=== PATIENT | female | born 1990 | race Caucasian/White ===

== ENCOUNTER → 2018-05-23 08:41 | Outpatient (CLI) | payer MEDICAID | END | disposition home or self-care (01) | LOC: D.MRI 08:41 | DX: M79.671 Pain in right foot (principal) ==

== ENCOUNTER 2018-07-10 05:00 | Day surgery (SDC) | payer MEDICAID ==
[2018-07-09 11:00] LABS: HEMATOCRIT 42.2 % (36.0-48.0); HEMOGLOBIN 14.5 g/dL (12-16); MCH 32.1 pg (26.0-34.0); MCHC 34.4 g/dL (31.0-37.0); MCV 93.4 fL (80.0-100.0); MEAN PLATELET VOLUME 9.5 fL (7.4-10.4); RBC 4.52 10x6/uL (4.00-5.40); RDW 12.7 % (11.5-14.5)
[~2018-07-10] VITALS: Ht 177.8 cm; Wt 74.8 kg
--- NOTE | ~2018-07-10 | OP ---
PATIENT NAME: KVNG BROWNE MEDICAL RECORD: [id number] :89 LOCATION:D.OPS ADMISSION DATE: SURGEON: ONOFRE QUIÑONEZ DPM DATE OF OPERATION: 07/10/2018 PREOPERATIVE DIAGNOSIS: Ganglion cyst, right dorsal foot. POSTOPERATIVE DIAGNOSES: Ganglion cyst, right dorsal foot with spur underneath the ganglion cyst. PROCEDURES: 1. Ganglion cyst removal, right dorsal foot. 2. Spur removal, right dorsal foot. ANESTHESIA: General with lidocaine and Marcaine plain injected around the surgical site, 10 cc total. HEMOSTASIS: Right ankle tourniquet at 250 mmHg. PREOPERATIVE DETAILS: The patient was taken to the OR and placed on the operating table in a supine position followed by induction of general anesthesia and infiltration of local anesthetic. The right extremity was then draped in the usual aseptic technique followed by exsanguination of extremity and inflation of tourniquet. PROCEDURE NUMBER 1: Ganglion cyst removal, right dorsal foot. A 15-blade was used to create a 3 cm linear incision over the dorsal aspect of the first met cuneiform joint running proximally. The incision was deepened down through subcutaneous tissue being sure to avoid all vital structures. The medial dorsal cutaneous nerve was visualized and freed and retracted in the wound. Dissection was carried down and the cyst was visualized, freed and removed. Upon removal of the ganglion cyst, there was noted to be some spurring on the dorsal aspect of the first met cuneiform joint. PROCEDURE NUMBER 2: Removal of spur, right dorsal first met cuneiform joint. Utilizing the incision as described above, a bone rasp was used to smooth down the spurring. This was followed by flushing with saline solution. Excellent reduction was noted. The wound was flushed. The deep tissue was reapproximated with 2-0 Vicryl. The subcutaneous tissue was reapproximated with 4-0 Rapide and the skin was closed with 4-0 Rapide in a subcuticular technique followed by Dermabond. Adaptic, 4 x 4 and Conform were used to dress the wound followed by a Coban. Tourniquet was deflated. POSTOPERATIVE DETAILS: The patient tolerated the procedure well and left the OR with vital signs stable and vascular status at preoperative levels. The patient was transported to recovery per anesthesia in stable condition. TRANSINT:[id number] Voice Confirmation ID: [id number] DOCUMENT ID: [id number] OPERATIVE REPORT [id number] KVNG BROWNE MCKAY DPM CC: [id number] DICTATION DATE: 07/10/18745 CONTACT LENS MOLDER: 07/10/[address] [facility] [address] [place] [address]
[2018-07-10 05:46] VITALS: BP 106/64; Ht 177.8 cm; Wt 74.8 kg
[2018-07-10 05:52] LABS: HCG URINE NEGATIVE (NEGATIVE)
== END 2018-07-10 09:30 | disposition home or self-care (01) ==
LOC: D.OPS 05:00 → D.PAN 07:00 → D.OPS 07:00
PROVIDERS: Anesthesiology; ATTEND Podiatrist
DX: M67.471 Ganglion, right ankle and foot (principal); M77.51 Other enthesopathy of right foot and ankle; Z01.812 Encounter for preprocedural laboratory examination